=== PATIENT | male | born 1955 | race Caucasian/White ===

== ENCOUNTER → 2020-10-03 16:19 | Outpatient (CLI) | payer OTHER, SELFPAY ==
--- NOTE | 2020-10-03 16:24 | CT_ITS ---
STUDY: CT SOFT TISSUE NECK WITH CONTRAST REASON FOR EXAM: Male, 65 years old. NECK ABSCESS RADIATION DOSAGE (If Supplied By Facility): CTDIvol = ( ) mGy, DLP = ( ) mGycm TECHNIQUE: The patient was scanned in a multi-detector CT scanner. High resolution transaxial imaging was performed following intravenous administration of IV 100mL Isovue-300. Sagittal and coronal images were reconstructed. Individualized dose optimization techniques were used for this CT. COMPARISON: None. FINDINGS: Normal bilateral parotid glands. Normal bilateral weatherization specialist spaces. Normal bilateral parapharyngeal spaces. Normal bilateral carotid spaces. Normal bilateral sublingual and submandibular glands and spaces. Normal visualized nasopharynx. Normal retropharyngeal space. Normal perivertebral space. Normal visualized bilateral faucial tonsils. The visualized tongue, tongue base and oropharynx are normal. The visualized cervical lymph nodes (levels I-) are within normal size limits, and maintain normal morphology. There is no demonstrated solid or cystic mass lesion. There is no abnormal contrast enhancement. Normal epiglottis, bilateral vallecula and hypopharynx. The pre-epiglottic and paraglottic adipose spaces are normal. Normal visualized bilateral piriform sinuses, aryepiglottic folds, vocal cords, and arytenoid-cricoid articulations. Normal subglottic trachea. Normal bilateral lobes of the thyroid gland. Normal visualized pulmonary apices. Normal visualized paranasal sinuses. Normal visualized cervical spine. CT/Soft Tissue Neck WITH Contrast IMPRESSION: Normal enhanced CT examination of the soft tissues of the neck. Electronically Signed: Logan Weeks MD at 14:03 EDT Tel , Service support ,
[2020-10-03 16:45] LABS: EGFR FINGERSTICK > 60.0000 mL/min (>60)
== END ==
PROVIDERS: PCP Family Medicine; Referring Provider Otolaryngology; Visit Provider Otolaryngology
DX: L02.11 Cutaneous abscess of neck (principal); A35 Other tetanus
CPT/HCPCS: 70491; Q9967

== ENCOUNTER → 2021-11-27 | Outpatient (CLI) | payer OTHER, SELFPAY ==
--- NOTE | 2021-11-27 18:17 | CT_ITS ---
INDICATION: HEMATURIA EXAMINATION: CT Abdomen And Pelvis WO/W Contrast Injection TECHNIQUE: Helically acquired images were obtained of the abdomen and pelvis after IV contrast. A radiation dose optimization technique was used for this scan. IV Contrast dosage and agent: IV 75mL Isovue-300 Oral contrast: None. COMPARISON: None. FINDINGS: Visualized lung bases: Unremarkable Liver: Unremarkable Gallbladder: Unremarkable Spleen: Unremarkable Pancreas: Unremarkable Adrenal Glands: Unremarkable Kidneys: 3 cm nonenhancing simple cyst in the right mid renal pole. Vasculature: Mild scattered aortoiliac atherosclerotic calcifications. GI Tract: Scattered diverticula throughout the colon without evidence of inflammation. Lymphadenopathy: None Peritoneum: No ascites. Bladder: Unremarkable Reproductive organs: The prostate is mildly enlarged. Bones/Soft tissues: There are diffuse degenerative changes of the spine. CT/CT Abd/Pelvis W/WO Contrast IMPRESSION: No acute abnormalities in the abdomen or pelvis. Specifically, no findings to explain patient''s hematuria. 3 cm simple cyst in the right mid renal pole. Diverticulosis. Mild prostatomegaly. Correlate with PSA levels. Electronically Signed: Clay Rowell MD at 23:29 EDT ,
[2021-11-27 18:26] LABS: CREATININE FINGERSTICK < 0.9 mg/dL (0.70-1.30); EGFR FINGERSTICK > 60.0000 mL/min (>60)
== END | disposition home or self-care (01) ==
LOC: CT 18:15
PROVIDERS: PCP Family Medicine; Visit Provider Urology
DX: R31.9 Hematuria, unspecified (principal)
CPT/HCPCS: 74178; Q9967

== ENCOUNTER → 2022-06-15 | Outpatient (CLI) | payer MEDICARE, OTHER, SELFPAY ==
[2022-06-15 11:34] LABS: PSA,Total- Diagnostic 4.48 ng/mL (0.0-4.0)
== END | disposition home or self-care (01) ==
LOC: LAB 09:51
PROVIDERS: PCP Family Medicine; Referring Provider Urology; Visit Provider Urology
DX: R97.20 Elevated prostate specific antigen [PSA] (principal)
CPT/HCPCS: 36415; 84153

== ENCOUNTER → 2022-11-26 | Outpatient (CLI) | payer MEDICARE, OTHER, SELFPAY ==
[2022-11-26 11:58] LABS: Absolute Lymphocyte Count 2.55 X10^3/uL (0.83-4.51); Absolute Neutrophil Count 5.3 X10^3/uL (2.0-7.7); Basophil# 0.02 X10^3/uL; Basophil% 0.2 % (0-1); Eosinophils% 1.1 % (0-5); Hematocrit 36.3 % (40-54); Hemoglobin 10.9 g/dL (13.0-16.5); Lymphocyte # 2.55 X10^3/ul (0.83-4.51); Mean Corpuscular Hgb 24.2 pg (27.0-32.0); Mean Corpuscular Volume 80.7 fL (80-94); Mean Platelet Vol. 8.9 fl (6.2-12.0); Monocyte# 0.82 X10^3/uL; Monocyte% 9.3 % (0-10); NRBC Flagged by Analyzer 0 % (0-5); Neutrophil # 5.26 X10^3/uL (2.7-7.7); Neutrophil % 59.8 % (47-70); Platelet Count 326 K/mm3 (150-450); RBC Distribution Width CV 17.8 % (11.6-14.6); RBC Distribution Width SD 51.6 fl (35.1-43.9); White Blood Count 8.8 K/mm3 (4.4-11.0)
[2022-12-01 22:07] LABS: Alternaria alternata <0.10 kU/L (Class 0); Bermuda Grass <0.10 kU/L (Class 0); Bluegrass, Kentucky <0.10 kU/L (Class 0); Cat Hair/Dander, Standard <0.10 kU/L (Class 0); D farinae Mite <0.10 kU/L (Class 0); D pteronyssinus <0.10 kU/L (Class 0); Dog Epithelia <0.10 kU/L (Class 0); Elm, American White <0.10 kU/L (Class 0); Mouse Urine <0.10 kU/L (Class 0); Oak, White <0.10 kU/L (Class 0); Plantain, English <0.10 kU/L (Class 0); Ragweed, Short/Common <0.10 kU/L (Class 0)
[2022-12-02 17:08] LABS: Aspirgillus flavus Negative (Neg:<1:1); Aspirgillus fumigatus Negative (Neg:<1:1); Aspirgillus niger Negative (Neg:<1:1); Cytoplasmic Ab (C-ANCA) <1:20 titer (Neg:<1:20); Immunoglobulin E 27 IU/mL (6-495); Perinuclear Ab (P-ANCA) <1:20 titer (Neg:<1:20)
== END | disposition home or self-care (01) ==
LOC: PAVLAB 11:38
PROVIDERS: PCP Family Medicine; Referring Provider Nurse Practitioner Acute Care; Visit Provider Nurse Practitioner Acute Care
DX: J30.9 Allergic rhinitis, unspecified (principal)
CPT/HCPCS: 36415; 82785; 85025; 86003; 86256; 86606

== ENCOUNTER → 2023-07-26 | Outpatient (CLI) | payer MEDICARE, OTHER, SELFPAY ==
[2023-07-26 17:12] LABS: PSA,Total - Annual Screen 6.34 ng/mL (0.00-4.00)
--- OUTSIDE RECORDS SUMMARY | 2023-07-26 20:01 | XMS RPT_ITS | CCD ---
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 Name Role Phone CHAD BUCK Primary Care Unavailable CHAD BUCK Admitting Unavailable CHAD BUCK Attending Unavailable CHAD BUCK Consulting Unavailable PROVIDER, UNKNOWN Consulting Unavailable PROVIDER, UNKNOWN Consulting Unavailable PROVIDER, UNKNOWN Consulting Unavailable RENA, CHAD Admitting Unavailable CHAD BUCK Attending Unavailable RENA, CHAD Consulting Unavailable RENA, CHAD Primary Care Unavailable PROVIDER, UNKNOWN Consulting Unavailable PROVIDER, UNKNOWN Consulting Unavailable PROVIDER, UNKNOWN Consulting Unavailable RENA, CHAD Primary Care Unavailable RENA, CHAD Admitting Unavailable CHAD BUCK Attending Unavailable RENA, CHAD Consulting Unavailable PROVIDER, UNKNOWN Consulting Unavailable PROVIDER, UNKNOWN Consulting Unavailable PROVIDER, UNKNOWN Consulting Unavailable RENA, CHAD Primary Care Unavailable RENA, CHAD Admitting Unavailable RENA, CHAD Attending Unavailable RENA, CHAD Consulting Unavailable PROVIDER, UNKNOWN Consulting Unavailable PROVIDER, UNKNOWN Consulting Unavailable PROVIDER, UNKNOWN Consulting Unavailable Chad Buck MD Unavailable Dr. Trell Cespedes MD [facility] Unavailable [phone] [facility] Un[address] Dr. Josué Andino MD Unavailable Dr. Kehinde Medley MD Unavailable Maisha Wells MD Unavailable Gloria ALBARADO, Danielle Unavailable Heidy Mane LPN Unavailable Unavailable Deon ALBARADO, Christal Mcghee Unavailable Unavailable Jensen Estrada MD Unavailable Lashya Ragland PA-C Unavailable [phone] Lala DUMONT, Lacey Barney Unavailable Unavail able Ngozi Raphael LPN Unavailable Unavailable Lizandro DUMONT, Lashay Hackett Unavailable Unavaila ble Orlando DUMONT, Jane Kent Unavailable Unavailable Balbir SEE, Lin Abraham Unavailable Sean VISCOSE CELLAR CHARGE HAND, Janny Unavailable Unavailable Toan SAMPLE SEWER, Maisha M Unavailable Unavailab dianelys Marrero SAMPLE SEWER, Floridalma Dee Unavailable Unavailab dianelys Ramirez MA, Ngozi Unavailable Unavailable Celeste BELL, Barry Hackett Unavailable Vess SAMPLE SEWER, Shiraz L Unavailable Unavailable [place] SAMPLE SEWER, Tamica Unavailable Unavailabl e Caitlin SAMPLE SEWER, Amanda Christiana Unavailable Unavaila ble Unavailable Unavailable Medications Current Medications Medication Drug Class(es) Dates Sig (Normalized) Sig (Original) albuterol 0.83 mg/ml inhalation solution (6 sources) beta2-Adrenergic Agonist Start: 06-01-2021 Albuterol Sulfate (2.5 MG/3ML) 0.083% Inhalation Nebulization Solution ; 1 (one) vial four times daily, as needed for 0 days Quantity: 50 {Each} Refills: 2 Ordered: 01-Jun-2021 MD Chad Buck Start: 01-Jun-2021 Comments: Medication taken as needed. dispense 50 vials Completed/Discontinued Medications Medication Drug Class(es) Dates Sig (Normalized) Sig (Original) acyclovir 800 mg oral tablet (3 sources) Herpesvirus Nucleoside Analog DNA Polymerase Inhibitor, Herpes Simplex Virus Nucleoside Analog DNA Polymerase Inhibitor, Herpes Zoster Virus Nucleoside Analog DNA Polymerase Inhibitor Start: 08-18-2010 End: 08-07-2012 ACYCLOVIR, 800MG (Oral Tablet) ; 1 (one) Tablet 5 times a day ( every 4 hours) for 0 days Quantity: 35 {Tablet} Refills: 0 Ordered: 07-Aug-2012 MD Chad Buck Start: 18-Aug-2010 End: 07-Aug-2012 Status: Inactive Comments: Zoster Problems Active Problems Problem Classification Problem Date Documented Da te Episodic/Chronic Allergic reactions (6 sources) Eczema; Translations: [Dermatitis, unspecified] 08-14-2021 Episodic Asthma (20 sources) Asthma; Translations: [Unspecified asthma, uncomplicated] 05-12-2023 Chronic Chronic obstructive pulmonary disease and bronchiectasis (20 sources) Bronchitis; Translations: [Bronchitis, not specified as acute or chronic] 08-14-2021 Episodic Conditions associated with dizziness or vertigo (6 sources) Vertigo; Translations: [Dizziness and giddiness] 08-14-2021 Episodic Deficiency and other anemia (3 sources) Anemia; Translations: [Anemia, unspecified] 09-23-2018 Episodic Diseases of mouth; excluding dental (6 sources) Sialoadenitis; Translations: [Sialoadenitis, unspecified] 09-29-2020 Episodic Disorders of lipid metabolism (20 sources) Hyperlipidemia; Translations: [Hyperlipidemia, unspecified] 05-12-2023 Chronic Esophageal disorders (12 sources) Gastroesophageal reflux disease; Translations: [Gastro-esophageal reflux disease without esophagitis] 05-12-2023 Chronic Essential hypertension (20 sources) Hypertensive disorder; Translations: [Essential (primary) hypertension] 05-12-2023 Chronic Immunizations and screening for infectious disease (6 sources) Requires varicella vaccination; Translations: [Encounter for immunization] 08-14-2021 Episodic Osteoarthritis (12 sources) Osteoarthritis of multiple joints ; Translations: [Polyosteoarthritis, unspecified] 05-12-2023 Chronic Other aftercare (20 sources) Long-term (current) use of other medications 08-14-2021 Episodic Other circulatory disease (20 sources) Disorder of respiratory system; Translations: [Other specified symptoms and signs involving the circulatory and respiratory systems] 06-01-2021 Episodic Other circulatory disease (12 sources) Elevated blood pressure reading without diagnosis of hypertension 11-05-2014 Episodic Other lower respiratory disease (9 sources) Wheezing; Translations: [Wheezing] 05-12-2023 Episodic Other lower respiratory disease (3 sources) Hypoxia; Translations: [Hypoxemia] 05-22-2020 Episodic Other male genital disorders (9 sources) Male erectile dysfunction, unspecified; Translations: [Impotence of organic origin] 05-12-2023 Chronic Other non-traumatic joint disorders (9 sources) Pain in left shoulder; Translations: [Pain in joint, shoulder region] 05-12-2023 Episodic Other nutritional; endocrine; and metabolic disorders (6 sources) Body mass index 30+ - obesity; Translations: [Body mass index (BMI) 32.0-32.9, adult] 08-14-2021 Chronic Other nutritional; endocrine; and metabolic disorders (6 sources) Overweight in adulthood with body mass index of 25 or more but less than 30; Translations: [Body mass index (BMI) 29.0-29.9, adult] 08-14-2021 Episodic Other screening for suspected conditions (not mental disorders or infectious disease) (20 sources) Raised prostate specific antigen; Translations: [Elevated prostate specific antigen [PSA]] 05-12-2023 Episodic Other upper respiratory disease (6 sources) Eosinophilic nonallergic rhinitis; 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] 08-14-2021 Chronic Other upper respiratory infections (15 sources) Sinusitis; Translations: [Chronic sinusitis, unspecified] 08-14-2021 Chronic Other upper respiratory infections (20 sources) Acute bacterial sinusitis; Translations: [Acute sinusitis, unspecified] 06-19-2015 Episodic Otitis media and related conditions (6 sources) Serous otitis media of bilateral ears; Translations: [Unspecified nonsuppurative otitis media, bilateral] 08-23-2011 Episodic Pneumonia (except that caused by tuberculosis or sexually transmitted disease) (9 sources) Community acquired pneumonia; Translations: [Pneumonia, unspecified organism] 05-22-2020 Episodic Screening and history of mental health and substance abuse codes (12 sources) Patient encounter status; Translations: [Encounter for screening for depression] 05-12-2023 Episodic Skin and subcutaneous tissue infections (3 sources) Cellulitis of face; Translations: [Cellulitis of face] 10-08-2020 Episodic Unclassified (3 sources) Unspecified Diagnosis 09-24-2011 Unclassified (3 sources) Follow up for multiple chronic conditions - The patient is here for follow-up of asthma, GERD, hyperlipidemia and hypertension. The patient always takes the prescribed medications. No side effects noted. The patient engages in regular exercise program 3-5 times per week. The patient's out of office blood pressure checks occur rarely. The patient states that there is no recent angina or dyspnea, weight has decreased and they do not have headaches. The patient states that the disease has no overall impact. Note for Multiple chronic conditions follow-up : reviewed by [facility] 05-12-2023 Unclassified (3 sources) MCR Well Adult - In general the patient feels well with no complaints, has good energy level and is sleeping well. The patient has a balanced diet and takes supplemental vitamins. The patient exercises none (is active) and sleeps 6 hours per night. The patient denies having trouble with bathing, dressing/grooming, toileting, preparing meals and ambulating. The patient denies having trouble with grocery shopping, driving, use of telephone, housework, laundry, preparing/taking medications and finances. The patient has a Healthcare Power of Roll On Man and a Living Will. Note for MCR Well Adult : reviewed by B 11-02-2022 Unclassified (3 sources) Follow up for multiple chronic conditions - The patient is here for follow-up of asthma, GERD, hyperlipidemia and hypertension. The patient always takes the prescribed medications. No side effects noted. The patient has an active lifestyle but no regular exercise program. The patient states that there is no recent angina or dyspnea and there are no vision changes or weakness. Note for Multiple chronic conditions follow-up : He also c/o of worsening of chronic pain int he left shoulder, asked about referral. 04-16-2022 Unclassified (3 sources) Well Adult, male - The patient feels well with minor complaints (Complains of raspy voice every afternoon.), has good energy level and is sleeping well. The patient has a balanced diet and takes supplemental vitamins. The patient exercises 3 - 4 times per week (treadmill and active). The patient sleeps 6 hours per night. 10-27-2021 Unclassified (3 sources) Follow Up for Multiple Chronic Conditions - The patient is here for follow-up of hyperlipidemia, hypertension and other condition(s) (ED). The patient always takes the prescribed medications. No side effects noted. The patient engages in regular exercise program 3-5 times per week (treadmill and walking). The patient's out of office blood pressure checks occur occasionally (130-135/70s) and dietary compliance is fairly good usually adhering to recommendations. The patient states that there is no recent angina or dyspnea, weight has increased (up 5 lbs) and they do not have headaches. Note for Multiple chronic conditions follow-up : reviewed by [facility] 04-09-2021 Unclassified (3 sources) Follow Up for Multiple Chronic Conditions - The patient is here for follow-up of hyperlipidemia and hypertension. The patient always takes the prescribed medications. No side effects noted (no refills needed today). The patient engages in regular exercise program 3-5 times per week. The patient's out of office blood pressure checks occur rarely (has not been checking lately) and dietary compliance is fairly good usually adhering to recommendations. The patient states that there is no recent angina or dyspnea and headaches are rarely noted. 03-28-2020 Unclassified (3 sources) Follow Up for Multiple Chronic Conditions - The patient is here for follow-up of hyperlipidemia and hypertension. The patient always takes the prescribed medications. No side effects noted (needs refills). The patient engages in regular exercise program 3-5 times per week (walks on treadmill). The patient's out of office blood pressure checks occur occasionally and dietary compliance is fairly good usually adhering to recommendations. The patient states that there is no recent angina or dyspnea, weight is unchanged and they do not have headaches. Note for Multiple chronic conditions follow-up : reviewed by [facility] 03-31-2019 Unclassified (3 sources) Follow Up for Multiple Chronic Conditions - The patient is here for follow-up of anxiety and hypertension. The patient always takes the prescribed medications. No side effects noted (does not need refills). The patient engages in regular exercise program 3-5 times per week (treadmill). The patient's out of office blood pressure checks occur frequently (143/84 today) and dietary compliance is fairly good usually adhering to recommendations. The patient states that there is no recent angina or dyspnea and headaches are rarely noted. Note for Multiple chronic conditions follow-up : He has been n oticing recently some elevation of BP, was on treatment many years ago. Also he has had trouble trying to donate blood due to low iron 09-23-2018 Unclassified (3 sources) Follow Up for Multiple Chronic Conditions - The patient is here for follow-up of hyperlipidemia. The patient always takes the prescribed medications. No side effects noted (needs refills.). The patient engages in regular exercise program 3-5 times per week (treadmill). The patient's out of office blood pressure checks occur occasionally and dietary compliance is fairly good usually adhering to recommendations. The patient states that there is no recent angina or dyspnea, weight has decreased (down 8 pounds) and they do not have headaches. Note for Multiple chronic conditions follow-up : reviewed by [facility] 01-31-2018 Unclassified (3 sources) Follow Up for Multiple Chronic Conditions - The patient is here for follow-up of hyperlipidemia. The patient always takes the prescribed medications. No side effects noted (needs refills). The patient engages in regular exercise program 3-5 times per week (walks on treadmill daily). The patient's out of office blood pressure checks occur occasionally and dietary compliance is fairly good usually adhering to recommendations. The patient states that there is no recent angina or dyspnea, weight has decreased (down 18 pounds) and headaches are rarely noted. Note for Multiple chronic conditions follow-up : reviewed by [facility] 08-02-2017 Unclassified (3 sources) Follow Up for Multiple Chronic Conditions - The patient is here for follow-up of hyperlipidemia. The patient always takes the prescribed medications. No side effects noted. The patient engages in regular exercise program 3-5 times per week. The patient's dietary compliance is good with close adherance to recommendations. The patient states that there is no recent angina or dyspnea, there are no vision changes or weakness, weight has increased ( up 10# fro last visit.) and they do not have headaches. The patient states that the disease has no overall impact. Note for Multiple chronic conditions follow-up : Labs done and ready to review.Pt also has been experiencing some decrease movement in left should over the past month. Has not done anything to hurt shoulder. No pain at all just has noticed that he is unable to raise it completely to eat or shave. He is able to extend and raise arm above head. He does a lot of lifting and pulling at [employer] and is left handed. reviewed by [facility] 07-02-2016 Unclassified (3 sources) Follow Up for Multiple Chronic Conditions - The patient is here for follow-up of hyperlipidemia. The patient always takes the prescribed medications. No side effects noted (does not need refills). The patient engages in regular exercise program 3-5 times per week (walks). The patient's out of office blood pressure checks occur occasionally and dietary compliance is fairly good usually adhering to recommendations. The patient states that there is no recent angina or dyspnea, weight has decreased (down 8 pounds) and headaches are rarely noted. Note for Multiple chronic conditions follow-up : reviewed by [facility] 11-28-2015 Unclassified (3 sources) Follow Up for Multiple Chronic Conditions - The patient is here for follow-up of hyperlipidemia and other condition(s) (Elevated Blood Pressure, Reactive Airway Disease.). The patient always takes the prescribed medications. No side effects noted (Has not needed any albuterol treatments in quite awhile. Uses Zyrtec almost every day for his allergies.). The patient engages in regular exercise program 3-5 times per week. The patient's out of office blood pressure checks occur frequently ([place] at home BP is bout 130-132/96-98). The patient states that there is no recent angina or dyspnea, there are no vision changes or weakness and weight has decreased (Down 6# from March visit.). The patient states that the disease has no overall impact (Pt states is doing fairly well and has no real concerns. UTD with Tdap. Labs done and ready to review.). Note for Multiple chronic conditions follow-up : Does not see any specialists. reviewed by [facility] 11-05-2014 Unclassified (3 sources) Cough - Was seen 08-06-14 with diagnosis of Sinusitis and given rx for Augmentin. Called on 08/10/14 due to wheezing and was given albuterol for nebulizer. Continues with productive cough. [place] like he improved some this morning but then tonight he was coughing and passed out for a few seconds after a coughing spell. Slight chest pain with coughing. No known underlying lung disease. 08-12-2014 Unclassified (3 sources) Follow Up for Multiple Chronic Conditions - The patient is here for follow-up of hyperlipidemia and other condition(s) (Elevated BP). The patient always takes the prescribed medications. No side effects noted. The patient engages in regular exercise program 3-5 times per week. The patient's out of office blood pressure checks occur occasionally (but has no readings.) and dietary compliance is fairly good usually adhering to recommendations. The patient states that there is no recent angina or dyspnea, there are no vision changes or weakness, weight has decreased (Down 6# from last visit.) and they do not have headaches. The patient states that the disease has no overall impact. Note for Multiple chronic conditions follow-up : Pt feels he is doing well. No concerns voiced today. UTD with Tdap and would like flu vaccine today. Labs done and ready to review. reviewed by B 03-15-2014 Unclassified (3 sources) Follow Up for Multiple Chronic Conditions - The patient is here for follow-up of hyperlipidemia. The patient always takes the prescribed medications. No side effects noted (Needs refills.). The patient engages in regular exercise program 1-3 times per week (walks). The patient's out of office blood pressure checks occur occasionally and dietary compliance is fairly good usually adhering to recommendations. The patient states that there is no recent angina or dyspnea, weight has increased (Up 6 pounds.) and they do not have headaches. Note for Multiple chronic conditions follow-up : reviewed by [facility] 09-04-2013 Unclassified (3 sources) Follow Up for Multiple Chronic Conditions - The patient is here for follow-up of hyperlipidemia and other condition(s) (elevated Blood pressure). The patient always takes the prescribed medications. No side effects noted. The patient engages in regular exercise program 3-5 times per week (Does treadmill several times a week. Was having some some heel pain in right foot but got some inserts which seemed to have help.). The patient's dietary compliance is good with close adherance to recommendations. The patient states that there is no recent angina or dyspnea, there are no vision changes or weakness, weight has decreased (DOwn about 11# from last visit.) and they do not have headaches. Note for Multiple chronic conditions follow-up : Pt feels he is doing well. Would like to have a mole on upper left back which says has changed as far as sticking out little more than it had been. ALso itches at times. Did have some labs done and ready to review. reviewed by [facility] 03-05-2013 Unclassified (3 sources) Follow Up for Multiple Chronic Conditions - The patient is here for follow-up of hyperlipidemia. The patient always takes the prescribed medications. No side effects noted (Needs refills). The patient engages in regular exercise program 3-5 times per week (Walks). The patient's out of office blood pressure checks occur occasionally (129/81 was last home reading.) and dietary compliance is fairly good usually adhering to recommendations. The patient states that weight has increased (Up 2 pounds.) and headaches are rarely noted. Note for Multiple chronic conditions follow-up : Complains of feeling lightheaded on occasion. He actually descires a vertigo type sensation . 02-21-2012 Unclassified (3 sources) Follow Up for Multiple Chronic Conditions - The patient is here for follow-up of hypertension, hyperlipidemia and other condition(s) (f/u for otitis media- right ear. Was seen by Lin couple weeks ago and given doxcycline for otits media and sinusitis. Ear was no better so she then put him on zithromax. Pt is still having some ear fullness and would like rechecked.). The patient always takes the prescribed medications. No side effects noted. The patient engages in regular exercise program 3-5 times per week (treadmill daily.). The patient's out of office blood pressure checks occur rarely. The patient states that there is no recent angina or dyspnea, weight has decreased (Down about 8# from last visit.) and they do not have headaches. Note for Follow Up for Multiple Chronic Conditions : Pt already had labs done which are on chart. reviewed by [facility] 08-23-2011 Unclassified (3 sources) Follow Up for Multiple Chronic Conditions - The patient is here for follow-up of hyperlipidemia. The patient always takes the prescribed medications. No side effects noted. The patient engages in regular exercise program 3-5 times per week. The patient's dietary compliance is fairly good usually adhering to recommendations. The patient states that there is no recent angina or dyspnea, there are no vision changes or weakness, weight is unchanged and they do not have headaches. Note for Follow Up for Multiple Chronic Conditions : BP up today but states that he had hypertension at one time but now off medication. Here to go over labs. no other probllems or concerns. reviewed by [facility] 02-22-2011 Viral infection (3 sources) Herpes zoster without mention of complication 08-18-2010 Episodic Past or Other Problems Problem Classification Problem Date Documented Da te Episodic/Chronic Unclassified (3 sources) Wheezing - Symptoms include inspiratory wheezing. Onset was 3 month(s) ago. Note for Wheezing : see previous. He coughed so hard one night he passed out coughing. 08-14-2021 Unclassified (3 sources) Cold Symptoms - Symptoms include nasal congestion, runny nose, productive cough and wheezing, but do not include ear pain, ear fullness, sore throat, fever, chills, general malaise, headache or facial pain. The onset was sudden 1 week(s) ago. The symptoms occur frequently. The patient describes this as moderate in severity and worsening (worse over the weekend). Current treatment includes cough suppressants. Note for Upper respiratory infection : reviewed by [facility] 05-11-2021 Unclassified (3 sources) Well Adult, male - The patient feels well with no complaints, has good energy level and is sleeping well. The patient has a balanced diet and takes supplemental vitamins. The patient exercises 3 - 4 times per week (treadmill). The patient sleeps 6 hours per night. Note for Well Adult, male : reviewed by [facility] 10-08-2020 Unclassified (3 sources) Concern - Patient is here today with a concern of right jaw swelling and pain. First noticed 6 months ago, he was seen by dentist who thought he had infection of the root canal, pt was put on ATB and referred to a specialist. The specialist said that he did not have an infection but thought it was from a blocked gland. Last week, he felt soreness of the right jaw but this Tuesday he started to have swelling of the right side of jaw. Is hard for him to open his mouth fully and is hard to eat solids. Is fasting today for labs. reviewed by [facility] 09-26-2020 Unclassified (3 sources) Cold Symptoms - Symptoms include sneezing, nasal congestion, runny nose, ear pain (right side on occasion), productive cough, wheezing and headache, but do not include ear fullness, sore throat, fever, chills or general malaise. The onset was sudden 3 week(s) ago. The symptoms occur constantly. The patient describes this as moderate in severity and unchanged. Current treatment includes allergy medications. Note for Upper respiratory infection : In May he had CAP ( Covid was negative ). 08-18-2020 Unclassified (3 sources) Hypertension - The onset of the hypertension has been variable. The symptoms do not include chest pain, fatigue, palpitations, visual changes or shortness of breath. Note for Hypertension : BP was elevated at [facility] physical. Is currently on Lisinopril 5mg daily. reviewed by B 07-09-2020 Unclassified (3 sources) Cough - The onset of the cough has been acute and has been occurring in an intermittent pattern for 3 weeks. The course has been increasing. The cough is characterized as dry. Associated symptoms include dyspnea, headache, sinus discharge and wheezing, while there is no fever or sore throat. Note for Cough : reviewed by [facility] 06-04-2020 Unclassified (3 sources) Cold Symptoms - Symptoms include runny nose, productive cough, wheezing and general malaise, but do not include nasal congestion, ear pain, ear fullness, sore throat, fever, chills or headache. The onset was sudden 3 week(s) ago. The symptoms occur constantly. The patient describes this as moderate in severity and worsening. Current treatment includes non-prescription cold medication, antibiotics (just finished zpack) and a short-acting beta agonist. Risk factors do not include smoking. Medical history includes seasonal allergies. Note for Upper respiratory infection : -Increased shortness of breath. Called yesterday to ask for Levaquin but Dr Alonso felt he needed Flovent. His was not willing to accept that rx because she thought Dr Buck said the albuterol was the best thing for him. [place] strongly he needed antibiotic. Dr Buck reviewed message today and agreed to call in Levaquin but when nurse phoned patient he felt worse and wanted reassessment. 05-22-2020 Unclassified (3 sources) Cold Symptoms - Symptoms include sneezing, runny nose, productive cough and wheezing, but do not include nasal congestion, ear pain, ear fullness, sore throat, fever, chills, general malaise or headache. The onset was sudden 1 week(s) ago. The symptoms occur constantly. The patient describes this as moderate in severity and worsening. Current treatment includes non-prescription cold medication. Medical history includes seasonal allergies. Note for Upper respiratory infection : Complains of shortness of breath. reviewed by [facility] 05-14-2020 Unclassified (3 sources) Well adult male - The patient feels well with no complaints, has good energy level and is sleeping well. The patient has a balanced diet and takes no supplemental vitamins & iron. The patient exercises 3 - 4 times per week. The patient sleeps 6 hours per night. Note for Well adult male : Labs printed to review today.Would like to have white area looked at on the right side of scalp. 09-21-2019 Unclassified (3 sources) Cold Symptoms - Symptoms include nasal congestion, ear fullness, scratchy throat, dry cough and facial pain, but do not include fever. The onset was gradual 3 week(s) ago. The symptoms occur intermittently. The patient describes this as moderate in severity and worsening. Current treatment includes allergy medications. Risk factors do not include smoking. Medical history includes seasonal allergies and recurrent sinusitis. 09-01-2018 Unclassified (3 sources) Cold Symptoms - Symptoms include nasal congestion, runny nose, non-purulent sputum, scratchy throat, hoarseness (laryngitis x 6 days), dry cough and fever (low grade), but do not include sneezing, ear pain, general malaise, headache or facial pain. The onset was gradual 1 week(s) ago. The symptoms occur frequently. The patient describes this as moderate in severity and unchanged. The patient is not currently being treated for this problem. Risk factors do not include smoking. The patient has been exposed to an individual with an upper respiratory infection and an individual with strep (grandson). Medical history includes seasonal allergies, but patient denies history of recurrent sinusitis, asthma or recurrent ear infections. 06-15-2017 Unclassified (3 sources) Well Adult, male - The patient feels well with no complaints, has good energy level and is sleeping well. The patient has a balanced diet and takes no supplemental vitamins & iron. The patient exercises 3 - 4 times per week (treadmill). The patient sleeps 6 hours per night. Note for Well Adult, male : meds and labs reviewed. 01-04-2017 Unclassified (3 sources) Cold Symptoms - Symptoms include sneezing (started out with), nasal congestion, runny nose, purulent discharge (yellow), sore throat (in the mornings more sore), scratchy throat, hoarseness, productive cough (white with tinge of yellow), general malaise and headache, but do not include ear pain, fever or facial pain. The onset was gradual 1 week(s) ago. The symptoms occur constantly. The patient describes this as moderate in severity and worsening. Current treatment includes cough suppressants, saline nasal spray/drops and cough drops. Risk factors do not include smoking. The patient has not been exposed to an individual with an upper respiratory infection. Medical history includes seasonal allergies, but patient denies history of asthma. Note for Upper respiratory infection : reviewed by [place] 06-19-2015 Unclassified (3 sources) Well Adult, male - The patient feels well with no complaints (Pt here for physical. Overall feeling well. Labs done and ready to review. Would like flu vaccine today. UTD Tdap.). The patient is not using any method of contraception at this time. The patient has a balanced diet and takes no supplemental vitamins & iron. The patient exercises weekly (2-3 times per week he does a treadmill.). The patient sleeps 6 hours per night. Note for Well Adult, male : reviewed by [facility] 05-16-2015 Unclassified (3 sources) Cold Symptoms - Symptoms include nasal congestion, runny nose, non-purulent sputum, hoarseness, productive cough, wheezing, general malaise, headache and facial pain. The onset was gradual 1 month(s) ago. The symptoms occur intermittently. The patient describes this as moderate in severity and worsening (in past day). Current treatment includes allergy medications and a decongestant nasal spray. Risk factors do not include smoking. Medical history includes seasonal allergies. 08-06-2014 Unclassified (3 sources) Well Adult, male - The patient feels well with no complaints. The current method of contraception is partner with tubal ligation. Patient has not had bone density screening. Date of most recent cholesterol screening : (07/29/12). Date of most recent glucose screening : (07/29/12 and result was 86). Patient has not had a Zostavax vaccine. Patient has not had a Pneumovax vaccine. Patient has not received a recent influenza vaccine. Last Tetanus booster: unknown/unsure. The patient has a balanced diet. The patient exercises 3 - 4 times per week. The patient sleeps 6 hours per night. 08-07-2012 Unclassified (3 sources) Cold Symptoms - Symptoms include sneezing, nasal congestion, runny nose (yellow/green drainage), ear pain (plugged since yesterday), productive cough (yellow/green phlegm), headache and facial pain, but do not include sore throat or fever. The onset was sudden 2 week(s) ago (on and off). The symptoms occur constantly. The patient describes this as moderate in severity and worsening. Current treatment includes non-prescription cold medication and allergy medications (takes zyrtec-D daily). Medical history includes seasonal allergies and recurrent sinusitis, but patient denies history of asthma. Note for Cold Symptoms : In and out of a cooler all day at work. Grandkids have been sick recently. No shortness of breath. Maybe some occasional wheezing. 07-15-2011 Unclassified (3 sources) Cold Symptoms - Symptoms include sore throat (Swollen glands. Worse on the right side. Rash also noted in the neck area.) and dry cough (slight), but do not include fever. The onset was sudden 4 day(s) ago. The symptoms occur constantly. The patient describes this as moderate in severity and worsening. Current treatment includes non-prescription cold medication. 08-18-2010 Unclassified (3 sources) Form Completion Physicals - The patient feels well with no complaints, has good energy level and is sleeping well. There are no current symptoms. The patient exercises 3 - 4 times per week. 08-10-2010 Unclassified (3 sources) Cold Symptoms - Symptoms include nasal congestion, runny nose, purulent discharge, sore throat, productive cough and headache, but do not include fever. The onset was gradual 10 day(s) ago. The symptoms occur constantly. The patient describes this as moderate in severity and worsening. Current treatment includes non-prescription cold medication. The patient has been exposed to an individual with an upper respiratory infection. Note for Cold Symptoms : Pt has a tendency to get sinus infections. 06-29-2010 Results Test Name Value Interpretation Reference Range Facil ity Vital Signs Date Time Vital Sign Value Performing Clinician Faci lity 05-12-2023 14:-050 Body height 165.1 [facility]. 05-12-2023 14:21-0500 Body mass index (BMI) [Ratio] 30.45 kg/m2 [facility], [facility].; [employer] [facility]. 05-12-2023 14:21-0500 Body surface area Derived from formula 1.9 m2 [facility]. 05-12-2023 14:21-050 Body weight 83.01 kg Maisha Joya LPN [facility]. 05-12-2023 14:21-0500 Diastolic blood pressure 77 mm[Hg] Maisha Joya LPN [facility]. Encounters Encounter Date Encounter Type Care Provider Facility Start: 05-12-2023 End: 05-12-2023 Office outpatient visit 15 minutes Chad Buck MD Work Phone: [facility] Start: 11-02-2022 End: 11-02-2022 Patient encounter procedure Chad Buck MD Work Phone: [facility] Start: 11-02-2022 End: 11-02-2022 Periodic preventive med est patient 65yrs& older Chad Buck MD Work Phone: [facility]. Start: 10-21-2022 End: 10-21-2022 Orders Chad Buck MD Work Phone: [facility]. Start: 04-19-2022 End: 04-19-2022 Orders Chad Buck MD Work Phone: [facility]. Start: 04-16-2022 End: 04-16-2022 ambulatory [facility] Start: 04-16-2022 End: 04-16-2022 Office outpatient visit 15 minutes Chad Buck MD Work Phone: [facility]. Start: 10-29-2021 End: 10-29-2021 Orders Chad Buck MD Work Phone: [facility]. Start: 10-27-2021 End: 10-27-2021 Patient encounter status Chad Buck MD Work Phone: [facility] Start: 10-27-2021 End: 10-27-2021 Periodic preventive med est patient 65yrs& older Chad Buck MD Work Phone: [facility]. Start: 10-17-2021 End: 10-17-2021 ambulatory [facility] Start: 10-12-2021 End: 10-13-2021 Orders Chad Buck MD Work Phone: [facility]. Start: 08-26-2021 End: 08-26-2021 Orders Chad Buck MD Work Phone: [facility]. Start: 08-18-2021 End: 08-18-2021 ambulatory [facility] Start: 08-17-2021 End: 08-17-2021 Orders Chad Buck MD Work Phone: [facility]. Start: 08-15-2021 End: 08-15-2021 ambulatory CHAD BUCK [facility] Start: 08-14-2021 End: 08-14-2021 Office outpatient visit 15 minutes Chad Buck MD Work Phone: [facility]. Start: 06-01-2021 End: 06-01-2021 Medication Chad Buck MD Work Phone: [facility]. Start: 05-11-2021 End: 05-11-2021 Office outpatient visit 15 minutes Chad Buck MD Work Phone: [facility]. Start: 04-09-2021 End: 04-09-2021 Office outpatient visit 15 minutes Chad Buck MD Work Phone: [facility]. Start: 10-08-2020 End: 10-08-2020 Patient encounter status Chad Buck MD Work Phone: [facility] Start: 10-08-2020 End: 10-08-2020 Periodic preventive med est patient 40-64yrs Chad Buck MD Work Phone: [facility]. Start: 09-30-2020 End: 09-30-2020 Historical Summary Chad Buck MD Work Phone: [facility]. Start: 09-29-2020 End: 09-29-2020 Medication Chad Buck MD Work Phone: [facility]. Start: 09-26-2020 End: 09-26-2020 Office outpatient visit 15 minutes Chad Buck MD Work Phone: [facility]. Start: 08-18-2020 End: 08-18-2020 Office outpatient visit 15 minutes Chad Buck MD Work Phone: [facility]. Start: 08-04-2020 End: 08-04-2020 Orders Chad Buck MD Work Phone: [employer] Start: 07-09-2020 End: 07-09-2020 Office outpatient visit 15 minutes Chad Buck MD Work Phone: [facility]. Start: 06-04-2020 End: 06-04-2020 Office outpatient visit 15 minutes Chad Buck MD Work Phone: [facility]. Start: 05-29-2020 End: 05-29-2020 Orders Chad Buck MD Work Phone: [facility]. Start: 05-22-2020 End: 05-22-2020 Patient encounter procedure Chad Buck MD Work Phone: [facility]. Start: 05-22-2020 End: 05-22-2020 Medication Chad Buck MD Work Phone: [facility]. Start: 05-14-2020 End: 05-14-2020 Office outpatient visit 15 minutes Chad Buck MD Work Phone: [facility]. Start: 03-28-2020 End: 03-28-2020 Patient encounter procedure Chad Buck MD Work Phone: [facility]. Start: 09-21-2019 End: 09-21-2019 Patient encounter status Chad Buck MD Work Phone: [facility] Start: 09-21-2019 End: 09-21-2019 Periodic preventive med est patient 40-64yrs Chad Buck MD Work Phone: [facility]. Start: 09-15-2019 End: 09-17-2019 Orders Chad Buck MD Work Phone: [facility]. Start: 07-31-2019 End: 07-31-2019 Orders Chad Buck MD Work Phone: [facility]. Start: 03-31-2019 End: 03-31-2019 Office outpatient visit 15 minutes Chad Buck MD Work Phone: [facility]. Start: 10-24-2018 End: 10-24-2018 Medication Chad Buck MD Work Phone: [facility]. Start: 09-23-2018 End: 09-23-2018 Medication Chad Buck MD Work Phone: [facility]. Start: 09-23-2018 End: 09-23-2018 Office outpatient visit 15 minutes Chad Buck MD Work Phone: [facility]. Start: 09-01-2018 End: 09-01-2018 Patient encounter procedure Chad Buck MD Work Phone: [facility]. Start: 08-26-2018 End: 08-26-2018 Orders Chad Buck MD Work Phone: [facility]. Start: 01-31-2018 End: 01-31-2018 Office outpatient visit 15 minutes Chad Buck MD Work Phone: [facility]. Start: 08-02-2017 End: 08-02-2017 Office outpatient visit 15 minutes Chad Buck MD Work Phone: [facility]. Start: 06-15-2017 End: 06-15-2017 Patient encounter procedure Chad Buck MD Work Phone: [facility]. Start: 01-04-2017 End: 01-04-2017 Patient encounter status Chad Buck MD Work Phone: [facility] [employer] Start: 01-04-2017 End: 01-04-2017 Periodic preventive med est patient 40-64yrs Chad Buck MD Work Phone: [facility]. Start: 12-25-2016 End: 09-10-2019 Orders Chad Buck MD Work Phone: [facility]. Start: 12-25-2016 End: 12-25-2016 Orders Chad Buck MD Work Phone: [facility]. Start: 11-29-2016 End: 11-29-2016 Medication Chad Buck MD Work Phone: [facility]. Start: 07-02-2016 End: 07-02-2016 Office outpatient visit 15 minutes Chad Buck MD Work Phone: [facility]. Start: 06-19-2016 End: 06-29-2016 Orders Chad Buck MD Work Phone: [facility]. Start: 02-20-2016 End: 02-20-2016 Medication Chad Buck MD Work Phone: [facility]. Start: 11-28-2015 End: 11-28-2015 Office outpatient visit 15 minutes Chad Buck MD Work Phone: [facility]. Start: 11-07-2015 End: 11-07-2015 Orders Chad Buck MD Work Phone: [facility]. Start: 06-19-2015 End: 06-19-2015 Office outpatient visit 15 minutes Chad Buck MD Work Phone: [facility]. Start: 05-16-2015 End: 05-16-2015 Patient encounter status Chad Buck MD Work Phone: [facility] Start: 05-16-2015 End: 05-16-2015 Periodic preventive med est patient 40-64yrs Chad Buck MD Work Phone: [facility]. Start: 05-06-2015 End: 05-06-2015 Orders Chad Buck MD Work Phone: [facility]. Start: 11-05-2014 End: 11-05-2014 Office outpatient visit 15 minutes Chad Buck MD Work Phone: [facility]. Start: 09-19-2014 End: 09-19-2014 Orders Chad Buck MD Work Phone: [facility]. Start: 08-15-2014 End: 08-15-2014 Medication Chad Buck MD Work Phone: [facility]. Start: 08-12-2014 End: 08-12-2014 Patient encounter procedure Chad Buck MD Work Phone: [facility]. Start: 08-10-2014 End: 08-10-2014 Medication Chad Buck MD Work Phone: [facility]. Start: 08-06-2014 End: 08-06-2014 Office outpatient visit 15 minutes Chad Buck MD Work Phone: [facility]. Start: 03-15-2014 End: 03-15-2014 Office outpatient visit 15 minutes Chad Buck MD Work Phone: [facility]. Start: 03-05-2014 End: 03-06-2014 Orders Chad Buck MD Work Phone: [facility]. Start: 09-04-2013 End: 09-04-2013 Patient encounter procedure Chad Buck MD Work Phone: [facility]. Start: 03-05-2013 End: 03-05-2013 Patient encounter procedure Chad Buck MD Work Phone: [employer] Start: 03-02-2013 End: 03-02-2013 Historical Summary Chad Buck MD Work Phone: [facility]. Start: 02-03-2013 End: 02-03-2013 Orders Chad Buck MD Work Phone: [facility]. Start: 01-31-2013 End: 01-31-2013 Orders Chad Buck MD Work Phone: [facility]. Start: 10-16-2012 End: 10-16-2012 Medication Chad Buck MD Work Phone: [facility]. Start: 08-07-2012 End: 08-07-2012 Patient encounter procedure Chad Buck MD Work Phone: [facility]. Start: 08-07-2012 End: 08-07-2012 Routine general medical examination at a health care facility Chad Buck MD Work Phone: [facility] Start: 07-29-2012 End: 07-29-2012 Orders Chad Buck MD Work Phone: [facility]. Start: 02-21-2012 End: 02-21-2012 Patient encounter procedure Chad Buck MD Work Phone: [facility]. Start: 02-12-2012 End: 02-14-2012 Orders Chad Buck MD Work Phone: [facility]. Start: 09-24-2011 End: 09-24-2011 Medication Chad Buck MD Work Phone: [facility]. Start: 08-23-2011 End: 08-23-2011 Patient encounter procedure Chad Buck MD Work Phone: [facility]. Start: 08-23-2011 End: 08-23-2011 Medication Chad Buck MD Work Phone: [facility]. Start: 08-14-2011 End: 08-16-2011 Orders Chad Buck MD Work Phone: [facility]. Start: 08-13-2011 End: 08-13-2011 Orders Chad Buck MD Work Phone: [facility]. Start: 08-04-2011 End: 08-04-2011 Medication Chad Buck MD Work Phone: [facility]. Start: 07-22-2011 End: 07-22-2011 Medication Chad Buck MD Work Phone: [facility]. Start: 07-15-2011 End: 07-15-2011 Patient encounter procedure Chad Buck MD Work Phone: [facility]. Start: 02-22-2011 End: 02-22-2011 Patient encounter procedure Chad Buck MD Work Phone: [facility]. Start: 02-13-2011 End: 02-15-2011 Orders Chad Buck MD Work Phone: [facility]. Start: 02-10-2011 End: 02-10-2011 Orders Chad Buck MD Work Phone: [facility]. Start: 08-18-2010 End: 08-18-2010 Patient encounter procedure Chad Buck MD Work Phone: [facility]. Start: 08-10-2010 End: 08-10-2010 Orders Chad Buck MD Work Phone: [facility]. Start: 08-10-2010 End: 08-10-2010 Routine general medical examination at a health care facility Chad Buck MD Work Phone: [facility] Start: 08-10-2010 End: 08-10-2010 Patient encounter procedure Chad Buck MD Work Phone: [facility]. Start: 08-10-2010 End: 08-10-2010 Routine general medical examination at a health care facility Chad Buck MD Work Phone: [facility] Start: 06-29-2010 End: 06-29-2010 Patient encounter procedure Chad Buck MD Work Phone: [facility]. Start: 05-12-2010 End: 05-12-2010 Historical Summary Chad Buck MD Work Phone: [facility]. Start: 05-09-2010 End: 05-11-2010 Orders Chad Buck MD Work Phone: [facility] Patient encounter procedure Masiha Joya [facility] Patient encounter status Janny Estrada [facility]. Patient encounter status Floridalma Larsen [employer] [facility]. Routine general medi tete examination at a health care facility Janny Sean [facility]. Procedures Date Procedure Procedure Detail Performing Clinician Start: 05-12-2023 End: 05-12-2023 Flu immunize order/admin Chad Barclay Work Phone: Start: 11-02-2022 End: 11-02-2022 Adv care pln/ no alt dcsn mkr docd or refusal Chad Buck MD Work Phone: Start: 11-02-2022 End: 11-02-2022 Depression screening Chad Buck MD Work Phone: Start: 11-02-2022 End: 11-02-2022 Falls risk assessment documented Chad Buck MD Work Phone: Start: 11-02-2022 End: 11-02-2022 PPPS, subseq visit Chad Buck MD Work Phone: Start: 11-02-2022 End: 11-02-2022 Pt falls assess docd w/o fall/injury past year Chad Buck MD Work Phone: Start: 11-02-2022 End: 11-02-2022 Scr dep neg, no plan reqd Chad Buck MD Work Phone: Start: 10-28-2022 End: 10-28-2022 Lab findings surveillance Floridalma goncalves [employer] [facility] Plan of Treatment Date Care Activity Detail Author Start: 11-25-2023 Patient encounter procedure Medical; PHYSICAL - [facility] Start: 25-Nov-2023 15:00 MD Chad Buck Appointment Request [facility] Start: 11-18-2023 Nursing evaluation o f patient and report Medical; Nurse visit - fasting labs - [facility] Start: 18-Nov-2023 8:00 NURSE, FLOAT Appointment Request [facility] Start: 08-06-2014 Patient Education Sinusitis *: sinus infection Indication: SINUSITIS, ACUTE NEC Start: 06-Aug-2014 Instruction Type: Patient Education [facility]; [facility] Work Phone: Immunizations Immunization Date Immunization Notes Care Provider Fa cili 05-12-2023 influenza, injectabl e, quadrivalent, preservative free Chad Buck MD Work Phone: [employer] [employer]; [facility] Payers Date Payer Category Payer Unknown [id number] 1955 Unknown [id number] 1955 Unknown [id number] 1955 Unknown [id number] Private Health Insurance [id number] Unknown Social History Date Type Detail Facility Alcohol Use: Alcohol Use: ; None. [facility]; [facility] Caffeine Use Caffeine Use [employer]; [facility] Exercise History: Exercise Histo ry: ; Moderate. 4 x week. [facility]; [facility] Tobacco Use: Tobacco Use: ; Never smoker. [facility]; [facility] Male [facility]; [facility] Work Phone: Moderate [employer]; [facility] Work Phone: 4 x week [employer]; [facility] Work Phone: Never smoked tobacco [facility]; [facility] [employer] Work Phone: Summary Purpose Family History Cancer Status:Active Comments:Father. Cerebrovascular Accident Status:Active Comment s:Negative Family History Of. Coronary Artery Disease Status:Active Comments :Brother. Diabetes Mellitus Type II Status:Active Commen ts:Brother. Hypertension Status:Active Comments:Mother. Hypothyroidism Status:Active Comments:Sister. Osteoarthritis Status:Active Comments:Mother. Father. Cancer Status:Active Comments:Father. Cerebrovascular Accident Status:Active Comment s:Negative Family History Of. Coronary Artery Disease Status:Active Comments :Brother. Diabetes Mellitus Type II Status:Active Commen ts:Brother. Hypertension Status:Active Comments:Mother. Hypothyroidism Status:Active Comments:Sister. Osteoarthritis Status:Active Comments:Mother. Father. Cancer Status:Active Comments:Father. Cerebrovascular Accident Status:Active Comment s:Negative Family History Of. Coronary Artery Disease Status:Active Comments :Brother. Diabetes Mellitus Type II Status:Active Commen ts:Brother. Hypertension Status:Active Comments:Mother. Hypothyroidism Status:Active Comments:Sister. Osteoarthritis Status:Active Comments:Mother. Father. Advance Directives No Advanced Directives Records FoundNo Advanced Directives Records FoundNo Advanced Directives Records Found Additional Source Comments (unrecognized sect ion and content) No Status Records FoundNo Status Records FoundNo Status Records Found INFORMATION SOURCE (unrecogn ized section and content) DATE CREATED AUTHOR AUTHOR'S ORGANIZ ATION 09/29/2020 [facility] DATE CREATED AUTHOR AUTHOR'S ORGANIZ ATION 04/17/2022 [facility] FOR RECORDS PERTAINING TO PATIENTS WHO ARE OR HAVE BEEN ENROLLED IN A CHEMICAL DEPENDENCY/SUBSTANCEABUSE PROGRAM, SOME INFORMATION MAY BE OMITTED. This clinical summary was aggregated from multiple sources. Caution should be exercised in using it in the provision of clinical care. This summary normalizes information from multiple sources, and as a consequence, information in this document may materially change the coding, format and clinical context of patient data. In addition, data may be omitted in some cases. CLINICAL DECISIONS SHOULD BE BASED ON THE PRIMARY CLINICAL RECORDS. [email or web address] provides no warranty or guarantee of the accuracy or completeness of information in this document.
== END | disposition home or self-care (01) ==
LOC: LAB 15:00
PROVIDERS: PCP Family Medicine; Referring Provider Urology; Visit Provider Urology
DX: Z12.5 Encounter for screening for malignant neoplasm of prostate (principal)
CPT/HCPCS: 36415; 84153; G0103

== ENCOUNTER → 2023-12-07 | Outpatient (CLI) | payer MEDICARE, OTHER, SELFPAY ==
--- NOTE | 2023-12-07 12:25 | NEURO ---
NCS and/or EMG Patient Report Ordering Doctor: Aleksandra Robledo DATE OF SERVICE: 12/07/23 Annabelle presents for electrodiagnostic testing of the left upper limb. He reports weakness about the left shoulder and numbness in the left hand. Symptoms have progressed over the past year. Electrodiagnostic Testing: The left median motor nerve demonstrates prolonged latency with normal amplitude and reduced conduction velocity. Left ulnar motor response demonstrates normal distal latency, amplitude and conduction across the elbow. Prolonged left median sensory latency at the wrist. Needle EMG testing was performed the left upper limb. All muscles tested showed no evidence of denervation with normal motor unit action potentials. Electrodiagnostic impression: This is an abnormal study 1. Electrodiagnostic findings suggestive of left-sided median mononeuropathy. This is consistent with a mild left carpal tunnel syndrome. 2. There is no electrodiagnostic evidence for cervical radiculopathy or brachial plexopathy. 3. There is no electrodiagnostic evidence for myopathy. Multi Select Codes Neurology Neurology Interp Codes: 46123-84 Musc test done w/n test comp (interp) and 30609-76 Nrv cndj tst 5-6 studies (interp)
== END | disposition home or self-care (01) ==
PROVIDERS: PCP Family Medicine; Referring Provider Physician Assistant; Visit Provider Physician Assistant
DX: R53.1 Weakness (principal); M62.512 Muscle wasting and atrophy, not elsewhere classified, left shoulder
CPT/HCPCS: 95886; 95909

== ENCOUNTER → 2024-03-09 | Outpatient (CLI) | payer MEDICARE, OTHER, SELFPAY ==
--- NOTE | 2024-03-09 | KNEE_PTH ---
PATIENT: PAULO TOM LOC: [facility]#:[id number] AGE/SX: 69/M ROOM: RE03/09/[address]: Dr. Mitchell Medley MD : 1955 BED: DIS: 03/09/2024 SPEC #: [id number] RECD: 03/09/24 15:04 STATUS: MARY RESarah #: [id number] SUJATHA: 03/09/24 00:[address]: Mitchell Medley DEPT: SURGICAL PATHOLOGY RECD BY: Alexsander Brennan ENTERED: 03/12/24 07:50 SP TYPE: TOTAL KNEE OTHR DR: Dr. Chad Buck MD [facility] Tissues: Knee, NOS Procedures: Decalcification bone/plaque Surgery Specimen Level IV HEADER OPERATION: Right total knee replacement PRE-OP DIAGNOSIS: Unilateral primary osteoarthritis, right knee TISSUE SUBMITTED: Right knee bone and soft tissue MICROSCOPIC DIAGNOSIS Bone and soft tissue, right knee, total knee replacement/resection: Pieces of bone with degenerative osteoarthritic changes. Fragments of fibrocartilaginous tissue and reactive synovial tissue. RODRIGO: 03/15/2024 MICROSCOPIC DESCRIPTION Slides are reviewed. GROSS DESCRIPTION Received is one container designated bone and soft tissue right knee. The specimen consists of multiple fragments of jane-yellow bone measuring in aggregate 10.0 x 10.0 x 3.0 cm. Also in the specimen container are multiple fragments of fibrocartilaginous tissue that measure in aggregate 5.0 x 3.0 x 1.0 cm. A number of bony fragments contain articular surfaces consistent with tibial plateau and femoral condyle and displaying prominent osteophyte formation, eburnation and bone erosion. Tooth Grinder sections are submitted in two cassettes as follows: 1 - soft tissue, 2 - bone after decalcification. / RODRIGO. 03/12/2024 :5 CPT: 80560, 21919
== END | disposition home or self-care (01) ==
LOC: LABSPEC 16:34
PROVIDERS: PCP Family Medicine; Referring Provider Orthopaedic Surgery; Visit Provider Orthopaedic Surgery
DX: M17.11 Unilateral primary osteoarthritis, right knee (principal)
CPT/HCPCS: 88305; 88311

== ENCOUNTER → 2024-05-10 | Outpatient (CLI) | payer MEDICARE, OTHER, SELFPAY ==
--- NOTE | 2024-05-10 08:09 | CT_ITS ---
STUDY: CT LEFT SHOULDER REASON FOR EXAM: Male, 69 years old. PRE OP RADIATION DOSAGE (If Supplied By Facility): CTDIvol = ( 29.12 ) mGy, DLP = ( 709.43 ) mGycm TECHNIQUE: The patient was scanned in a multi detector CT scanner. High resolution transaxial imaging was performed without the administration of intravenous contrast material. Sagittal and coronal images were reconstructed. Individualized dose optimization techniques were used for this CT. COMPARISON: None. FINDINGS: There is superior migration of the humeral head with respect to the glenoid, with severe narrowing of the acromiohumeral space, compatible with a chronic rotator cuff tear. There is moderate atrophy and fatty infiltration of the supraspinatus, infraspinatus, and subscapularis muscles. Normal glenoid rim, neck and visualized scapula. Normal humeral head, neck and tuberosities. Normal coracoid process. Normal visualized lateral clavicle. There is minimal acromioclavicular arthrosis. There is a Type II morphology (curved), with a neutral orientation. Normal visualized soft tissue structures. CT/Extremity Upper without Contra IMPRESSION: Superior migration of the humeral head with severe narrowing of the acromiohumeral space, compatible with a chronic rotator cuff tear. Moderate atrophy and fatty infiltration of the supraspinatus, infraspinatus, and subscapularis muscles. Minimal acromioclavicular arthrosis. Electronically Signed: Red Hensley MD at 15:34 EST ,
== END | disposition home or self-care (01) ==
LOC: CT 08:08
PROVIDERS: PCP Family Medicine; Referring Provider Student in an Organized Health Care Education/Training Program; Visit Provider Student in an Organized Health Care Education/Training Program
DX: M19.012 Primary osteoarthritis, left shoulder (principal)
CPT/HCPCS: 73200

== ENCOUNTER 2024-06-04 09:05 | Day surgery (SDC) | payer MEDICARE, OTHER, SELFPAY ==
[2024-05-10 08:56] LABS: Absolute Lymphocyte Count 2.05 X10^3/uL (0.83-4.51); Absolute Neutrophil Count 3.7 X10^3/uL (2.0-7.7); Basophil# 0.03 X10^3/uL; Basophil% 0.5 % (0-1); Eosinophil# 0.27 X10^3/uL; Eosinophils% 4.1 % (0-5); Hematocrit 42.5 % (40-54); Hemoglobin 13.8 g/dL (13.0-16.5); Lymphocyte # 2.05 X10^3/ul (0.83-4.51); Lymphocyte % 30.8 % (19-41); Mean Corp Hgb Conc 32.5 g/dL (32-36); Mean Corpuscular Hgb 28.4 pg (27.0-32.0); Mean Corpuscular Volume 87.4 fL (80-94); Mean Platelet Vol. 9.3 fl (6.2-12.0); NRBC Flagged by Analyzer 0 % (0-5); Neutrophil # 3.66 X10^3/uL (2.7-7.7); Neutrophil % 54.8 % (47-70); Platelet Count 324 K/mm3 (150-450); RBC Distribution Width CV 13.2 % (11.6-14.6); RBC Distribution Width SD 42.3 fl (35.1-43.9); Red Blood Count 4.86 M/mm3 (4.6-6.2); White Blood Count 6.7 K/mm3 (4.4-11.0)
[2024-05-10 09:22] LABS: Anion Gap 2 (5-15); BUN 15 mg/dL (7-18); BUN/Creat Ratio 16.9 RATIO (10-20); Calcium,Total 9.9 mg/dL (8.5-10.1); Chloride 105 mmol/L (98-107); Creatinine, Serum 0.89 mg/dL (0.70-1.30); EST Glomerular Filtration Rate 91 mL/min (>60); Est Glom Filt Rate - Afr Amer 110 mL/min (>60); Glucose 98 mg/dL (74-106); Potassium 4.1 mmol/L (3.5-5.1); Sodium Level 138 mmol/L (136-145)
[2024-05-11 11:33] LABS: Magnesium 2.1 mg/dL (1.6-2.6)
[2024-06-04] VITALS (10 sets, daily range): BP systolic 103–132; BP diastolic 73–98; PULSE 52–75; RESP 16–23; TEMP 36.1–36.4; O2SAT 90–98; BMI 33.4
[2024-06-04] MEDS: 0.9% Normal Saline (1000mL) 1,000 ML 999 ML IV ×2 (09:53→12:00)
[2024-06-04] MEDS: Acetaminophen 500 MG Tablet 1000 MG PO (09:53)
[2024-06-04] MEDS: Magnesium 1 GM over 15 mins IV (09:53)
[2024-06-04] MEDS: Gabapentin 600 MG Tablet PO (09:54)
[2024-06-04] MEDS: Celecoxib 200 MG Capsule 400 MG PO (09:54)
--- NOTE | 2024-06-04 10:08 | PCM.PRE.AN2 ---
ASA Classification* ASA Classification ASA Classification: 2 Assessment & Plan Anesthesia* Anesthesia Assessment Anesthesia Assessment: Discussed sedation and/or anesthesia options, risks, benefits, and alternatives with patient/parents/legal guardian/POA. Questions invited. The patient/parents/legal guardian/POA seems to understand and agrees to proceed with anesthesia plan. Reviewed the physical assessment, medical history, allergy history and patient home medications list prior to surgery/procedure/anesthetic and documented any changes. Performed airway and anesthesia risk assessments. Anesthesia Type Anesthesia Type: General and Block (Patient is consented for interscalene block.) History Source History Obtained from:: Patient and Chart Anesthesia Focused Assessment* Temperature: 97.6 F Pulse Rate: 68 Blood Pressure: 132/98 Respiratory Rate: 16 Pulse Ox: 98 Oxygen Delivery Method: Room Air Airway Assessment Mouth opens: >3 cm Mallampati Score: IV Teeth Condition: Intact Neck Range of motion (ROM): Limited ROM (Slight decrease in extension) Focused Labs Anesthesia Preop lab: CBC WBC 6.7 K/mm3 (4.4-11.0) 05/10/24 08:43 RBC 4.86 M/mm3 (4.6-6.2) 05/10/24 08:43 Hgb 13.8 g/dL (13.0-16.5) 05/10/24 08:43 Hct 42.5 % (40-54) 05/10/24 08:43 Plt Count 324 K/mm3 (150-450) 05/10/24 08:43 CHEMISTRY Potassium 4.1 mmol/L (3.5-5.1) 05/10/24 08:43 Sodium 138 mmol/L (136-145) 05/10/24 08:43 Magnesium 2.1 mg/dL (1.6-2.6) 05/10/24 08:43 BUN 15 mg/dL (7-18) 05/10/24 08:43 Creatinine 0.89 mg/dL (0.70-1.30) 05/10/24 08:43 Glucose 98 mg/dL (74-106) 05/10/24 08:43 COAG Pre-Assessment Diagnosis/Proposed Procedure Planned Operative Procedure(s): REVERSE TOTAL SHOULDER REPLACEMENT left Anesthesia History 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 When Was Last Pacemaker Check QUESTION #4 FULL TEXT: You/Your Family Experience fever (hyperthermia) with Anesthesia Last Oral Intake Last Oral intake: Last Oral Intake NPO since Meds taken in AM with sips of water? 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 [employer] Female No 05/07/24 14:59 HX of Motion Sickness No 05/07/24 14:59 HX of N/V After Surgery No 05/07/24 14:59 Non-Smoker Yes 05/07/24 14:59 Duration of Surgery greater Yes 05/07/24 14:59 than 60 minutes Number of Risk Factors 2 05/07/24 14:59 PONV Score Moderate Risk 05/07/24 14:59 Height & Weight Height & Weight: Anesthesia: Height & Weight Height 5 ft 6 in 06/04/24 09:39 Weight: 94 kg 06/04/24 09:39 Body Mass Index (BMI) 33.4 06/04/24 09:39 Respiratory Assessment Respiratory Assessment - [employer]: Respiratory Tract Infection Hx - [employer] Hx Respiratory Tract Infection No 05/07/24 14:59 STOP Sleep Apnea STOP Sleep Apnea - [employer]: STOP Sleep Apnea - [employer] Hx Hypertension Yes: CONTROLLED WITH MED 05/07/24 14:59 Hx Sleep Apnea No 05/07/24 14:59 CPAP BIPAP Do you snore loudly (louder No 05/07/24 14:59 than talking or can be heard Do you often feel tired/ No 05/07/24 14:59 fatigued/ sleepy during daytime? Has anyone observed you stop No 05/07/24 14:59 breathing during sleep? STOP Results Negative 05/07/24 14:59 QUESTION #5 FULL TEXT : Do you snore loudly (louder than talking or can be heard through closed doors)? 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 Specify any problems Hx of Preganancy in last 3 N/A 05/07/24 14:59 Months Nurse Filling Out Transfusion DSCHRIBER 05/07/24 14:59 & Questions: Date: 05/07/24 05/07/24 14:59 Time: 15:00 05/07/24 14:59 Patient unable to answer at this time (ie. confused, unrespo /Reproduction History /Reproductive History - [employer]: /Reproductive Hx- supervisor [employer] Hx Now No 05/07/24 14:59 Gestational Age (in weeks): EDC: Hx Hx Para Hx Section SAB No 05/07/24 14:59 Active Medications Active Medications: Current Medications Generic Name Dose Route Start Last Admin Trade Name Freq PRN Reason Stop Dose Admin Acetaminophen 1,000 mg 06/04/24 11:20 06/04/24 09:53 Acetaminophen 500 Mg Tablet PO 06/04/24 11:21 1,000 mg X1 ONE Administration Celecoxib 400 mg 06/04/24 11:20 06/04/24 09:54 Celecoxib 200 Mg Capsule PO 06/04/24 11:21 400 mg X1 ONE Administration Gabapentin 600 mg 06/04/24 11:20 06/04/24 09:54 Gabapentin 600 Mg Tablet PO 06/04/24 11:21 600 mg X1 ONE Administration Tranexamic Acid 1,000 mg/ 110 mls @ 660 mls/hr 06/04/24 11:20 Sodium Chloride IV 06/04/24 11:29 X1 ONE Cefazolin Sodium 2 gm/ N/A 20 mls @ 400 mls/hr 06/04/24 11:20 IV 06/04/24 11:22 PREOP ONE Magnesium Sulfate 1 gm/ 102 mls @ 408 mls/hr 06/04/24 11:20 06/04/24 09:53 Dextrose IV 06/04/24 11:34 408 mls/hr X1 ONE Administration Sodium Chloride 1,000 mls @ 999 mls/hr 06/04/24 09:20 06/04/24 09:53 IV 06/04/24 11:20 999 mls/hr .Q1H1M PENELOPE Administration Protocol Sodium Chloride 1,000 mls @ 75 mls/hr 06/04/24 11:20 IV 06/05/24 13:59 .[id number] PENELOPE Protocol Sodium Chloride 1,000 mls @ 125 mls/hr 06/04/24 13:30 IV 06/05/24 05:29 .Q8H PENELOPE Protocol Sodium Chloride 1,000 mls @ 999 mls/hr 06/04/24 13:30 IV 06/04/24 15:30 .Q1H1M PENELOPE Protocol Insulin Human Lispro 1 - 6 unit 06/04/24 11:20 Insulin Lispro 100 Unit/Ml Insuln.Pen SC 06/04/24 17:20 Q4H PRN PRN BG>/= 180, SEE PROTOCOL Protocol PFSH Medical History Wears glasses Cancer Arthritis High cholesterol History of hiatal hernia Gastric reflux Non-smoker History of pain when walking History of edema History of stress test History of irregular heartbeat Vertigo Wheezing Asthma HTN (hypertension) Hyperlipidemia Home Medications ?Medication ?Instructions ?Recorded ?Last Taken ?Type atorvastatin 20 mg tablet (Lipitor) 20 mg PO QHS 10/28/21 06/03/24 History cetirizine 5 mg-pseudoephedrine ER 1 tab PO BID 10/28/21 06/03/24 History 120 mg tablet,extended release,12hr (Zyrtec-D) lisinopril 5 mg tablet 5 mg PO DAILY 10/28/21 06/03/24 History wvxniidcveqb-wbd-pnvpo acid-vit 1 tab PO DAILY 10/30/21 05/30/24 History K-lycop 400 mcg-20 mcg-370 mcg tablet (Men's 50 Plus Multivitamin) omeprazole 20 mg capsule,delayed 20 mg PO DAILY 07/15/23 06/03/24 History release Nebulizer machine #1 ea 03/16/24 Unknown Rx albuterol sulfate 2.5 mg/3 mL 2.5 mg (3 mL) inhalation Q6H PRN 03/16/24 Unknown Rx (0.083 %) solution for nebulization shortness of breath or wheezing #180 mL albuterol sulfate 90 mcg/actuation 2 puff inhalation Q6H PRN 03/16/24 Unknown Rx aerosol inhaler shortness of breath or wheezing #8.5 grams montelukast 10 mg tablet 10 mg PO QPM #90 tabs 03/16/24 06/03/24 Rx Peak Flow Meter #1 ea 04/16/24 Unknown Rx fluticasone propionate 230 1 puff inhalation BID 05/07/24 06/03/24 History mcg-salmeterol 21 mcg/actuation HFA inhaler (Advair HFA) Allergy/AdvReac Type Severity Reaction Status Date / Time No Known Allergies Allergy Verified 06/04/24 09:36 Family History Mother COPD (chronic obstructive pulmonary disease) Father Cancer esophageal Brother COPD (chronic obstructive pulmonary disease) Myocardial infarction Sister COPD (chronic obstructive pulmonary disease) Thyroid disorder Lupus Surgical History Hx of colonoscopy Hx of total knee arthroplasty H/O wisdom tooth extraction Social History household members: spouse housing: house current occupational status: employed pets and animals: No Smoking Status: Never smoker alcohol intake: never substance use type: does not use Review of Systems (Anesthesia) ROS Narrative System reviewed and no additional complaints, except as documented.
[2024-06-04] MEDS: Cefazolin 2 GM in Syringe IV (10:41)
[2024-06-04] MEDS: TXA 1000mg in NS100 100ml (IVPB at Incision) 660 MG IV (10:55)
--- NOTE | 2024-06-04 11:30 | SHO_PTH ---
PATIENT: PAULO TOM LOC: [facility] [place] U#:[id number] AGE/SX: 69/M ROOM: RE06/04/[address]: Dr. Ja Snyder DO : 1955 BED: DIS: 06/04/2024 SPEC #: [id number] RECD: 06/04/24 13:07 STATUS: MARY JOANNA #: [id number] SUJATHA: 06/04/24 11:[address]: Ja Snyder DEPT: SURGICAL PATHOLOGY RECD BY: Alexsander Brennan ENTERED: 06/04/24 13:55 SP TYPE: HUMERUS OTHR DR: Dr. Chad Buck MD Tissues: Humerus, NOS Procedures: Decalcification bone/plaque Surgery Specimen Level IV HEADER OPERATION: Total shoulder replacement, reverse PRE-OP DIAGNOSIS: Psudoparalysis of left shoulder, left shoulder rotator cuff dysfunction TISSUE SUBMITTED: Left humeral head MICROSCOPIC DIAGNOSIS Bone and tissue left shoulder, total shoulder replacement/resection: Humeral head with mild degenerative osteoarthritic changes, clinically left shoulder rotator cuff dysfunction. RODRIGO. 06/11/2024 MICROSCOPIC DESCRIPTION Slides are reviewed. GROSS DESCRIPTION Received is one container labeled with the patient's name and designated bone and soft tissue. The specimen consists of a humeral head measuring 5.0 x 5.5 x 3.0 cm. The articular surface shows areas of erosion and osteophyte formation. No soft tissue is identified. Chemical Packager sections are submitted in two cassettes after decalcification. / SJ: 06/05/2024 TC:5 CPT: 96545, 02987
[2024-06-04] MEDS: Vancomycin IV 1,000 MG/20 ML Vial 1000 MG OPERA.SITE (12:25)
[2024-06-04 12:39] LABS: Bedside Glucose 80 mg/dL (74-106)
--- NOTE | 2024-06-04 13:01 | RAD_ITS ---
INDICATION: post op -- AP and Lateral X-Ray of operative shoulder in PACU EXAMINATION/TECHNIQUE: X-RAY - LEFT XR Shoulder Min 2 Views 2 VIEWS COMPARISON: No relevant prior comparison study available FINDINGS: SOFT TISSUES: No soft tissue swelling or gas. No radiopaque foreign body. BONES/JOINTS: Left shoulder arthroplasty. No evidence of acute fracture. The acromioclavicular joint is unremarkable. No sclerotic or destructive changes observed. RAD/Shoulder min 2 Views IMPRESSION: Status post left shoulder arthroplasty. Electronically Signed: Valentin Griffiths MD at 14:31 EST ,
--- NOTE | 2024-06-04 13:23 | OP.PCM_ITS ---
Operative Report (Standard) Operative Information Date of Procedure: 06/04/24 Pre-Operative Diagnosis: Left shoulder rotator cuff tear arthropathy Post-Operative Diagnosis: Left shoulder rotator cuff tear arthropathy Surgery/Procedure Performed: Left reverse total shoulder arthroplasty uptwister tender: Yes Credit Portfolio Advisor: Dora Don Tasks completed by administrative assistant office manager: Opening & closing, Implanting device and Retracting Additional assistant professor of biology?: No Type of Anesthesia: General/Regional RN Documented Start/Stop Times: Operation Date: 06/04/24 11:20 Case Time Into Pre-Op 06/04/24 09:13 Out of Pre-Op 06/04/24 10:40 Anesthesia Start 06/04/24 10:41 Into Room 06/04/24 10:41 Procedure Start 06/04/24 11:09 Procedure End 06/04/24 12:37 Anesthesia End 06/04/24 12:49 Out of Room 06/04/24 12:49 Into Recovery 06/04/24 12:55 Procedure Start Time: 11:09 Procedure Stop Time: 12:37 Select all DRAINS/GRAFTS/IMPLANTS that apply: Implanted device Implanted device details: Tornier Aequalis PerFORM+ reversed baseplate 29 mm diameter +6 mm lateralization, standard glenosphere cobalt chrome 42 mm diameter, Tornier perform inlay stem size #4, + 3 mm retentive size number 3 42 mm diameter polyethylene insert, short central post and peripheral screws x4. Estimated Blood Loss: 100 cc Specimen collected: Yes Description of specimen(s) removed: Left humeral head Description of surgery: Patient arrived to [facility] morning of the procedure and was greeted by the same day surgery staff. Prior to his procedure, I greeted the patient in the preoperative holding area I identified the patient by name, record number, and date of . Informed consent was confirmed. The operative extremity was marked. All questions were answered to patient satisfaction. An interscalene block was administered prior to procedure by anesthesia staff for postoperative and intraoperative analgesia. At time of his procedure, patient was brought to the operative suite and positioned supine on a standard table with a beachchair attachment. General anesthesia was induced after all bony prominences were well-padded. Endotracheal tube was placed. After adequate anesthesia and securing the tube, we prepared the patient to be positioned in the beachchair position. A well- padded cold header operator was applied. The nonoperative extremity was placed in a well arm dockery. He was then brought into the beachchair position after we confirmed an appropriate blood pressure. We then spun the bed 45 degrees. The operative extremity was then prepared. In the butterfly wing of the bed was removed and a well-padded torso strap was applied to secure the patient to the bed. The operative extremity was now free. We then prepped and draped the left upper extremity in normal, sterile orthopedic fashion. We then performed a timeout with all parties in attendance in agreement with the side, site, and operation be performed. 2 g Ancef was administered prior to incision by anesthesia staff, as well as 1 g TXA IV. No concerns were voiced and we elected to proceed. I first marked a standard deltopectoral incision just lateral to the coracoid process in line with the long axis of the humerus. Skin was sharply incised with 10 blade scalpel. I then dissected bluntly through the subcutaneous layers and found the fat stripe between the deltoid and pectoralis major. The cephalic vein was then identified and protected. It was retracted laterally with the deltoid. I then bluntly dissected underneath the deltoid with a Mehta elevator. Carrillo retractor was placed. The upper 1 cm of the pectoralis major was released. I then identified the long head of the biceps tendon in the intertubercular groove. This was tenodesed in situ with #2 FiberWire. I then amputated the biceps proximal to the tenodesis site and followed the tendon to the supraglenoid tubercle where it was amputated. This identified the lesser and greater tuberosities. The supraspinatus was completely torn and retracted with an exposed greater tuberosity. I then performed a subscapularis peel while rotating the humerus externally. I tagged the subscapularis for possible repair later with a tagging suture. Humeral head was then dislocated anteriorly. Appropriate access to the humeral head was confirmed. I then subluxed the humeral head posteriorly with a Fukuda retractor placed around the posterior lip of the glenoid. Inferior capsule was tension. I was able to palpate the axillary nerve. Inferior capsule was then released to the 4 o'clock position of the glenoid face. 3 sided subscapularis release was performed with Bovie cautery. I then remove the Fukuda retractor and redislocated the shoulder anteriorly. I then made a anatomic neck cut of the cartilaginous surface of the humeral head. Sizing plate for a size # 4 stem was utilized to determine appropriate reaming size. A central pin was placed engaging the lateral cortex of the humerus. A size # 4 reamer was used to ream the humeral metaphysis and prepare for the inlay stem. A canal finding reamer was utilized prior to sequential broaching to a size #4 short stem with excellent rotational and axial purchase in the humerus. I remove the broach handle left the size # [address] I then subluxed the humerus posterior to the glenoid. I then placed retractors around the posterior and anterior glenoid to expose the glenoid. Glenoid labrum was removed with Bovie cautery protecting the axillary nerve. We then used the custom guide from [employer] to position our centering pin, exiting approximately 25 mm from the joint surface along the anterior scapula. Guide was removed and pin was analyzed and compared to preoperative planning. It appeared to be in appropriate position. The Nautilus shaped reamer was then placed over top of the centering pin. I reamed a flat surface of the glenoid. We then removed the reamer and used the cannulated drill for the short central post. Post and baseplate was assembled on the back table. We then inserted the baseplate and central post the assembled baseplate to an appropriate depth with good press-fit purchase. A [place] was used to confirm depth. Cortical screws then were placed in the peripheral holes with good purchase. The baseplate had excellent purchase and the entire scapula would rotate with rotation of the baseplate. We then impacted the 42 mm glenosphere with a standard eccentricity and tightened the locking screw mechanism. We then removed retractors and turned our attention back to the humerus. I placed a standard +3 millimeters retentive polyethylene insert. I then reduced the shoulder. There was excellent range of motion and stability in all planes of motion. We selected this as our final size. We removed trials from the humerus after final dislocation. I copiously irrigated the canal. Broach was placed on hand and then impacted to an appropriate depth. Final + 3 mm retentive polyethylene insert was placed. Final reduction was then performed. The subscapularis was then identified with a tagging suture. Repair would have been likely under undue tension and likely failed. I elected to not perform a subscapularis repair. We then copiously irrigated the wound with sterile Betadine and normal saline solution. 1 g vancomycin powder was then sprinkled in the wound in the subcutaneous plane prior to closure. We reapproximated the interval with 0 Vicryl suture. Subcutaneous layers were reapproximated with 2 -0 Vicryl suture. Skin was finally running V-Loc 3-0 Monocryl suture and Dermabond. A sterile silver Mepilex dressing was applied. Patient was then placed in an ultra sling. Patient tolerated procedure well without complication. He was positioned back in the supine position extubated in the operative suite. He was transferred to the rfriendship and subsequently to PACU in stable condition. Need for skilled assistant professor of biology: Dora Don PA-C was critical to the outcome of the case. During the course of the procedure the physician assistant professor of biology played a vital role. Her intimate knowledge of my steps in the procedure aided in safe and expedient completion of the procedure. The PA played a vital role in positioning particularly in obtaining the appropriate positioning. The PA was also vital in the retraction of soft tissues during the exposure and protecting vital structures. The PA was also vital and protecting soft tissues during times of bony cuts. She also played a vital role in closure with my direct supervision. The PA was also important during reduction and dislocation of the joint and trials intraoperatively. Intraoperative medications: 2 g Ancef IV, 1 g topical vancomycin powder, 1 g TXA IV Post Operative Plan: Weightbearing: Nonweightbearing left upper extremity, okay for pendulums. Range of motion of wrist elbow and hand as tolerated. Antibiotics: 2 g Ancef IV prior to incision, 24 hours IV antibiotics postoperat ively DVT Prophylaxis: Aspirin enteric-coated 81 mg twice daily starting tomorrow [place]: None Dressing: Maintain silver dressing x7 days. Okay to shower dressing on started on day 4 X-Rays: 2 weeks postop in the office Pain Medication: Oxycodone Rx upon discharge Follow-up: 2 weeks post-operatively with me in the office Surgical Findings: Cuff tear arthropathy findings with massive rotator cuff tear. Stable implant following final reduction Complications Complications: No Admit VTE Documentation VTE Present on Admission: No VTE Mechan Device Prophylaxis: SCD's VTE Pharm Prophylaxis ordered?: Yes
--- NOTE | 2024-06-04 13:44 | PCM.POST.ANE ---
Anesthesia: Postop Eval I Current Vital Signs Temperature: 97.5 F Pulse Rate: 75 Blood Pressure: 103/81 Respiratory Rate: 16 Pulse Ox: 98 Oxygen Delivery Method: Room Air Assessment Airway patent: Yes Spontaneous unlabored respirations: Yes Mental status: Awake and Calm nausea: No Vomiting: No Anesthesia Complication: No Fluid Hydration Crystalloid volume administer (ml): 1,200 Total IV fluid infused: 1,200 Progress Note Anesthesia document: Postop Eval 1 completed: Yes
--- NOTE | 2024-06-04 14:09 | POSTOPAN2_ITS ---
Anesthesia Postop Eval I Sum Postop Eval Completion status Anesthesia document: Postop Eval 1 completed: Yes Anesthesia Postop Eval I Summary Anesthesia Postop Eval I Summary: Anesthesia Postop Eval I: Assessment Summary Airway patent Yes 06/04/24 13:45 PERINATOLOGY [email or web address] Spontaneous unlabored Yes 06/04/24 13:45 PERINATOLOGY [email or web address] respirations Mental status Awake,Calm 06/04/24 13:45 PERINATOLOGY [email or web address] nausea No 06/04/24 13:45 PERINATOLOGY [email or web address] Vomiting No 06/04/24 13:45 PERINATOLOGY [email or web address] Anesthesia Postop Eval I: Fluid Summary Crystalloid volume administer 1,200 06/04/24 13:45 PERINATOLOGY [email or web address] (ml) Colloids volume administered ( ml) Blood Product volume administered (ml) Total IV fluid infused 1,200 06/04/24 13:45 PERINATOLOGY [email or web address] Anesthesia Postop Eval I: Summary Notes Anesthesia Complication No 06/04/24 13:45 PERINATOLOGY [email or web address] Anesthesia Complication Comment: Post-operative progress note Anesthesia: Postop Eval II Evaluation Mental status: Awake and Calm Pain Level: 1 nausea: No Vomiting: No Complications Anesthesia Complication: No
--- NOTE | 2024-06-04 14:09 | PCM.POSTANE2 ---
Anesthesia Postop Eval I Sum Postop Eval Completion status Anesthesia document: Postop Eval 1 completed: Yes Anesthesia Postop Eval I Summary Anesthesia Postop Eval I Summary: Anesthesia Postop Eval I: Assessment Summary Airway patent Yes 06/04/24 13:[email or web address] Spontaneous unlabored Yes 06/04/24 13:[email or web address] respirations Mental status Awake,Calm 06/04/24 13:[email or web address] nausea No 06/04/24 13:[email or web address] Vomiting No 06/04/24 13:[email or web address] Anesthesia Postop Eval I: Fluid Summary Crystalloid volume administer 1,200 06/04/24 13:[email or web address] (ml) Colloids volume administered ( ml) Blood Product volume administered (ml) Total IV fluid infused 1,200 06/04/24 13:[email or web address] Anesthesia Postop Eval I: Summary Notes Anesthesia Complication No 06/04/24 13:[email or web address] Anesthesia Complication Comment: Post-operative progress note Anesthesia: Postop Eval II Evaluation Mental status: Awake and Calm Pain Level: 1 nausea: No Vomiting: No Complications Anesthesia Complication: No
[2024-06-04] MEDS: Cefazolin 1 GM/50 ML BAG IV (14:32)
== END 2024-06-04 15:37 | disposition home or self-care (01) ==
LOC: SDC 09:05 → AC 09:05
PROVIDERS: Anesthesiology; PCP Family Medicine; Referring Provider Student in an Organized Health Care Education/Training Program; Visit Provider Student in an Organized Health Care Education/Training Program
PROC: (CPT 23472; principal; 2024-06-04 10:50)
DX: M75.102 Unspecified rotator cuff tear or rupture of left shoulder, not specified as traumatic (principal); I10 Essential (primary) hypertension; K21.9 Gastro-esophageal reflux disease without esophagitis; E78.00 Pure hypercholesterolemia, unspecified; M19.90 Unspecified osteoarthritis, unspecified site; J45.909 Unspecified asthma, uncomplicated; Z79.51 Long term (current) use of inhaled steroids; Z96.652 Presence of left artificial knee joint; Z79.899 Other long term (current) drug therapy
CPT/HCPCS: 23472; 01638; 64415; 36415; 73030; 80048; 82962; 83735; 85025; 87077; 87081; 88305; 88311; C1713; C1776; J2405; J3475

== ENCOUNTER → 2024-08-02 | Outpatient (CLI) | payer MEDICARE, OTHER, SELFPAY ==
[2024-08-02 12:13] LABS: PSA,Total- Diagnostic 5.13 ng/mL (0.00-4.00)
== END | disposition home or self-care (01) ==
LOC: LAB 11:04
PROVIDERS: PCP Family Medicine; Referring Provider Urology; Visit Provider Urology
DX: N40.1 Benign prostatic hyperplasia with lower urinary tract symptoms (principal)
CPT/HCPCS: 36415; 84153

== ENCOUNTER → 2024-09-25 | Outpatient (CLI) | payer MEDICARE, OTHER, SELFPAY | END | disposition home or self-care (01) | LOC: PSN 07:01 | PROVIDERS: PCP Family Medicine; Referring Provider Nurse Practitioner Acute Care; Visit Provider Nurse Practitioner Acute Care | DX: R06.02 Shortness of breath (principal) | CPT/HCPCS: 94060; 94726; 94729 ==

== ENCOUNTER → 2024-10-30 | Outpatient (CLI) | payer MEDICARE, OTHER, SELFPAY ==
[2024-10-30 08:13] VITALS: PULSE 74; PULSE 80; PULSE 85; PULSE 88; PULSE 92; PULSE 95; PULSE 96; O2SAT 96; O2SAT 97; O2SAT 98
--- NOTE | 2024-11-01 08:26 | PCM.PSN.6M ---
PSN 6 Minute Walk Test 6 Minute Walk Test 6 Minute Walk Test: 6 Minute Walk Test PSN:6-Minute Walk Test Start: 10/30/24 08:13 Freq: Status: Active Protocol: RESP.6MINW Document 10/30/24 08:13 [facility] (Rec: 10/30/24 08:16 [facility] [id number]) 6 Minute Walk Test Date Performed 10/30/24 Time Performed 08:00 Height 5 ft 6 in Weight: 195 lb Weight in Pounds 195.[address]: Anita Livingston SURGERY TECHNICIAN Assistive device None used: Pre-test Oxygen Delivery Room Air Method Pulse Ox (%) 98 Pulse Rate (60-100 74 beats/min) Dyspnea Chris Scale ( 0 0-10) Exertion Chris Scale 6 (6-20) 1st minute Oxygen Delivery Room Air Method Pulse Ox (%) 98 Pulse Rate (60-100 88 beats/min) Dyspnea Chris Scale ( 1 0-10) Exertion Chris Scale 6 (6-20) Number of Rests 0 Taken 2nd minute Oxygen Delivery Room Air Method Pulse Ox (%) 97 Pulse Rate (60-100 85 beats/min) Dyspnea Chris Scale ( 1 0-10) Exertion Chris Scale 6 (6-20) Number of Rests 0 Taken 3rd minute Oxygen Delivery Room Air Method Pulse Ox (%) 97 Pulse Rate (60-100 92 beats/min) Dyspnea Chris Scale ( 2 0-10) Exertion Chris Scale 7 (6-20) Number of Rests 0 Taken 4th minute Oxygen Delivery Room Air Method Pulse Ox (%) 96 Pulse Rate (60-100 95 beats/min) Dyspnea Chris Scale ( 3 0-10) Exertion Chris Scale 7 (6-20) Number of Rests 0 Taken Reported Symptoms Increased Work of Breathing 5th minute Oxygen Delivery Room Air Method Pulse Ox (%) 98 Pulse Rate (60-100 96 beats/min) Dyspnea Chris Scale ( 3 0-10) Exertion Chris Scale 7 (6-20) Number of Rests 0 Taken Reported Symptoms Increased Work of Breathing 6th minute Oxygen Delivery Room Air Method Pulse Ox (%) 97 Pulse Rate (60-100 96 beats/min) Dyspnea Chris Scale ( 3 0-10) Exertion Chris Scale 8 (6-20) Number of Rests 0 Taken Reported Symptoms Increased Work of Breathing Post-test Oxygen Delivery Room Air Method Pulse Ox (%) 98 Pulse Rate (60-100 80 beats/min) Dyspnea Chris Scale ( 0 0-10) Exertion Chris Scale 6 (6-20) Full Laps Walked 23 Partial Lap, Number 27 of Tiles Walked Total Distance 1384 Walked (ft) Interpretation Interpretation: The patient ambulated 1384 feet over the course of 6 minutes beginning on room air without assistive devices. Pretesting oxygen saturation was noted to be 98% on room air. With ambulation, the babak oxygen saturation was 96%. There was no significant exertional oxygen desaturation. Recommendations Recommendations: There is no indication for the use of supplemental oxygen at this time.
== END | disposition home or self-care (01) ==
LOC: PSN 07:51
PROVIDERS: PCP Family Medicine; Referring Provider Nurse Practitioner Acute Care; Visit Provider Nurse Practitioner Acute Care
DX: R06.02 Shortness of breath (principal)
CPT/HCPCS: 94618